=== PATIENT | male | born 1990 | race African-American/Black ===

== ENCOUNTER 2017-07-14 03:29 | Emergency (ER) | payer OTHER ==
[~2017-07-14] VITALS: Ht 167.6 cm; Wt 83.9 kg
[~2017-07-14 03:29] MED LIST: ALPR0.5T PO; QUET300T2 PO
--- NOTE | 2017-07-14 03:35 | NUR ---
TO BED 13 A 26 YO MALE PATIENT BIBSELF C/O +SI - HI PLANS TO "CUT WRIST." PATIENT IS ALERT AND RESPONSIVE. VSS. NAD NOTED. SKIN WARM AND DRY. SAFETY MEASURES IN PLACE. SUICIDE PRECAUTIONS OBSERVED.
[2017-07-14 04:17] LABS: BASOPHILS % (AUTO) 0.4 % (0.0-2.0); HEMATOCRIT 41 % (39-51); HEMOGLOBIN 13.1 g/dL (13.5-17.5); LYMPHOCYTES # (AUTO) 0.7 /CMM (0.8-4.8); LYMPHOCYTES % (AUTO) 6.7 % (20.0-44.0); MEAN CORPUSCULAR HEMOGLOBIN 28 PG (26.0-33.0); MEAN CORPUSCULAR HGB CONC 32 g/dl (31.0-36.0); MEAN CORPUSCULAR VOLUME 87 fL (80-96); MONOCYTES # (AUTO) 0.6 /CMM (0.1-1.30); MONOCYTES % (AUTO) 5.9 % (2.0-12.0); NEUTROPHILS # (AUTO) 9.5 /CMM (1.8-8.9); PLATELET COUNT (AUTO) 291 /CMM (150-450); RDW COEFFICIENT OF VARIATION 13.9 (11.5-15.0); RED BLOOD CELL COUNT(AUTO) 4.71 MIL/uL (4.5-6.0); WHITE BLOOD COUNT (AUTO) 10.9 K/uL (4.3-11.0)
[2017-07-14 04:26] LABS: CALCIUM, SERUM 9.2 mg/dL (8.5-10.1); CREATININE 1.2 mg/dL (0.6-1.3); POTASSIUM 4.5 mmol/L (3.5-5.1)
[2017-07-14 04:32] LABS: ALBUMIN 4.3 g/dL (3.4-5.0); BILIRUBIN,DIRECT 0.2 mg/dL (0.0-0.2); BILIRUBIN,TOTAL 0.5 mg/dL (0.2-1.0); SALICYLATE 2.9 mg/dL (2.8-20.0); TOTAL PROTEIN, SERUM 8.5 g/dL (6.4-8.2)
--- NOTE | 2017-07-14 04:41 | NUR ---
PRISCILLA GILL, TRAM OPERATOR, CALLED AND SAID HE "WILL BE HERE."
[2017-07-14 04:54] LABS: APPEARANCE,URINE CLEAR (CLEAR); BILIRUBIN,URINE NEGATIVE (NEGATIVE); BLOOD, URINE NEGATIVE Ery/uL (NEGATIVE); COLOR,URINE YELLOW (YELLOW); KETONES,URINE NEGATIVE (NEGATIVE); LEUKOCYTE ESTERASE ,URINE NEGATIVE (NEGATIVE); NITRITE, URINE NEGATIVE (NEGATIVE); PROTEIN,URINE 1+ mg/dl (NEGATIVE); UGLUCOSE NEGATIVE (NEGATIVE); UROBILINOGEN,URINE 0.2 EU/dL (0.2)
[2017-07-14 05:17] LABS: BACTERIA,URINE None seen /HPF (None Seen); MUCUS,URINE Moderate /LPF (None Seen); RBC,URINE 0-2 /HPF (0-2); SQUAMOUS EPITHELIAL CELL,UR Few /HPF (None Seen); WBC,URINE 0-2 /HPF (0-3)
--- NOTE | 2017-07-14 05:52 | NUR ---
Patient discharged to home in stable condition. Written and verbal after care instructions given. Patient verbalizes understanding of instruction. Patient is ambulatory with steady gait. vss. nad noted. No further complaints.
[2017-07-14 05:53] VITALS: BP 128/74
== END 2017-07-14 05:53 | disposition home or self-care (01) ==
LOC: ER 03:30
DX: R45.851 Suicidal ideations (principal); F15.10 Other stimulant abuse, uncomplicated; F14.10 Cocaine abuse, uncomplicated; F12.10 Cannabis abuse, uncomplicated; F19.10 Other psychoactive substance abuse, uncomplicated; F90.9 Attention-deficit hyperactivity disorder, unspecified type; F10.10 Alcohol abuse, uncomplicated; F17.200 Nicotine dependence, unspecified, uncomplicated; F31.9 Bipolar disorder, unspecified; F20.9 Schizophrenia, unspecified
CPT/HCPCS: 36415; 80048; 80076; 80305; 80329; 81001; 85025; 99284; A4606; G0480 ×2; Z7610; 81000-TC

== ENCOUNTER 2019-03-03 02:51 | Emergency (ER) | payer MEDICAID, OTHER ==
[~2019-03-03] VITALS: Ht 167.6 cm; Wt 84.8 kg
--- NOTE | 2019-03-03 03:00 | NUR ---
PT BIBRA. C/O "HAVING GEN BODY PAIN" -SOB AOX3. VSS. AMBULATORY.
[2019-03-03 03:43] LABS: BASOPHILS # (AUTO) 0.1 /CMM (0.0-0.2); BASOPHILS % (AUTO) 0.5 % (0.0-2.0); EOSINOPHILS % (AUTO) 0.7 % (0.0-6.0); HEMATOCRIT 39 % (39-51); HEMOGLOBIN 13.4 g/dL (13.5-17.5); LYMPHOCYTES # (AUTO) 1.3 /CMM (0.8-4.8); LYMPHOCYTES % (AUTO) 11.9 % (20.0-44.0); MEAN CORPUSCULAR HGB CONC 35 g/dl (31.0-36.0); MEAN CORPUSCULAR VOLUME 85 fL (80-96); MONOCYTES % (AUTO) 9.1 % (2.0-12.0); NEUTROPHILS # (AUTO) 8.4 /CMM (1.8-8.9); NEUTROPHILS % (AUTO) 77.8 % (43.0-81.0); PLATELET COUNT (AUTO) 307 /CMM (150-450); RED BLOOD CELL COUNT(AUTO) 4.59 MIL/uL (4.5-6.0); WHITE BLOOD COUNT (AUTO) 10.8 K/uL (4.3-11.0)
[2019-03-03] MEDS ORDERED: ZIPRASIDONE MESYLATE 20 MG/VIAL VIAL IM ONE ×2 (03:54→04:00)
[2019-03-03 03:56] LABS: ALANINE AMINOTRANSFERASE 13 U/L (12-78); ALBUMIN 3.6 g/dL (3.4-5.0); ALCOHOL, BLOOD < 3 mg/dL (0-0); ALKALINE PHOSPHATASE 60 U/L (46-116); ASPARTATE AMINOTRANSFERASE 24 U/L (15-37); BILIRUBIN,TOTAL 0.8 mg/dL (0.2-1.0); CALCIUM, SERUM 8.6 mg/dL (8.5-10.1); CARBON DIOXIDE 27 mmol/L (21-32); CHLORIDE 101 mmol/L (98-107); GLUCOSE 87 mg/dL (74-106); POTASSIUM 3.5 mmol/L (3.5-5.1); SODIUM SERUM 136 mmol/L (136-145); TOTAL PROTEIN, SERUM 6.9 g/dL (6.4-8.2); UREA NITROGEN, BLOOD 22 mg/dL (7-18)
[2019-03-03 04:03] LABS: SALICYLATE 1.1 mg/dL (2.8-20.0)
[2019-03-03 04:04] LABS: ACETAMINOPHEN 0 ug/ml (10-30)
--- NOTE | 2019-03-03 05:50 | NUR ---
Patient is resting comfortably in bed with eyes closed. Easily aroused. VSS
--- NOTE | 2019-03-03 08:01 | NUR ---
PT ASSESSED ON BED, AAOX3,N OT IN RESPIRATORY DISTRESS, V/S STABLE, KEPT RESTED AND COMFORTABLE, STILL UNABLE TO PROVIDE URINE SPECIMEN THIS TIME. WILL CONTINUE TO MONITOR.
--- NOTE | 2019-03-03 09:36 | NUR ---
PT ASLEEP ON BED, EASILY AROUSABLE, AAOX3, NOT IN RESPIRATORY DISTRESS, V/S STABLE, KEPT RESTED AND COMFORTABLE, WILL CONTNUE TO MONITOR.
--- NOTE | 2019-03-03 11:40 | NUR ---
FOOD TRAY PROVIDED.
[2019-03-03 11:45] VITALS: BP 112/61
--- NOTE | 2019-03-03 11:49 | NUR ---
Patient given written and verbal discharge instructions. Patient verbalizes understanding of instructions. Patient is ambulatory with steady gait. Refuses offer of penitentiary placement. Patient given list of available shelters in surrounding area.
== END 2019-03-03 11:57 | disposition home or self-care (01) ==
LOC: ER 02:52
DX: F31.9 Bipolar disorder, unspecified (principal); F29 Unspecified psychosis not due to a substance or known physiological condition; F20.9 Schizophrenia, unspecified; F90.9 Attention-deficit hyperactivity disorder, unspecified type; F10.10 Alcohol abuse, uncomplicated; F17.200 Nicotine dependence, unspecified, uncomplicated; R45.1 Restlessness and agitation; Y90.0 Blood alcohol level of less than 20 mg/100 ml; Z79.899 Other long term (current) drug therapy
CPT/HCPCS: 36415; 80053; 80307; 80329; 85025; 96372; 99284; G0480; J3486